=== PATIENT | male | born 1950 | race Caucasian/White ===

== ENCOUNTER → 2017-12-08 | Outpatient (CLI) | payer MEDICARE, OTHER ==
[~2017-12-08] MED LIST: NITROGLYCERIN AEROSOL (4.9 GM)
[2017-12-08] MEDS: SOD CHLORIDE 0.9% 100 ML (14:10)
[2017-12-08] MEDS: IOHEXOL 100 ML (14:11)
== END | disposition home or self-care (01) ==
LOC: C/S 12:26
DX: R06.02 Shortness of breath (principal)
CPT/HCPCS: 75571; 75574

== ENCOUNTER → 2019-02-02 | Outpatient (CLI) | payer MEDICARE, OTHER ==
[2019-02-02] MEDS: SOD CHLORIDE 0.9% 100 ML (10:25)
[2019-02-02] MEDS: IOHEXOL 350MG/ML 50 ML BTL ×2 (10:25)
== END | disposition home or self-care (01) ==
LOC: C/S 09:30
DX: R07.9 Chest pain, unspecified (principal)
CPT/HCPCS: 75571; 75571-59; 75574